=== PATIENT | female | born 1985 | race Caucasian/White ===

== ENCOUNTER 2019-06-08 07:54 | Emergency (ER) | payer OTHER ==
[~2019-06-08] VITALS: Ht 162.6 cm; Wt 89.4 kg
[2019-06-08] MEDS ORDERED: SYNTHROID88 MCG (08:00)
== END 2019-06-08 11:22 | disposition home or self-care (01) ==
LOC: ER 07:54
DX: G43.909 Migraine, unspecified, not intractable, without status migrainosus (principal)

== ENCOUNTER 2022-03-08 08:06 | Day surgery (SDC) | payer OTHER ==
[~2022-03-08] VITALS: Ht 162.6 cm; Wt 103.4 kg
[~2022-03-08 08:06] MED LIST: SYNTHROID88 MCG
== END 2022-03-08 20:10 | disposition home or self-care (01) ==
LOC: CIR.AMB 08:06
PROVIDERS: ATTEND Obstetrics & Gynecology
DX: N84.0 Polyp of corpus uteri (principal)

== ENCOUNTER 2024-08-16 00:20 | Emergency (ER) | payer OTHER ==
[~2024-08-16] VITALS: Ht 162.6 cm; Wt 92.1 kg
[2024-08-16] MEDS ORDERED: SUMATRIPTAN SUCCINATE 6 MG/0.5 ML VIAL SUBCUTANEO STA (08:22)
[2024-08-16] MEDS ORDERED: SUMATRIPTAN SUCCINATE 6 MG/0.5 ML VIAL SUBCUTANEO ONE (08:26)
== END 2024-08-16 09:29 | disposition home or self-care (01) ==
LOC: ER 00:23
DX: G43.909 Migraine, unspecified, not intractable, without status migrainosus (principal)

== ENCOUNTER 2024-09-12 17:42 | Emergency (ER) | payer OTHER ==
[~2024-09-12] VITALS: Ht 162.6 cm; Wt 93.4 kg
[2024-09-12] MEDS ORDERED: FAMOTIDINE/PF 20 MG/2 ML VIAL IV PUSH STA (19:39)
[2024-09-12] MEDS ORDERED: ONDANSETRON HCL 2 MG/ML VIAL IV STA (19:39)
[2024-09-12] MEDS ORDERED: ORPHENADRINE CITRATE 30 MG/ML AMPUL IM STA (19:40)
[2024-09-12] MEDS ORDERED: KETOROLAC TROMETHAMINE 15 MG VIAL IV STA (19:40)
[2024-09-12] MEDS ORDERED: KETOROLAC TROMETHAMINE 30 MG VIAL ONE (20:26)
[2024-09-12] MEDS ORDERED: FAMOTIDINE/PF 20 MG/2 ML VIAL ONE (20:27)
[2024-09-12] MEDS ORDERED: ONDANSETRON HCL 2 MG/ML VIAL ONE (20:27)
[2024-09-12] MEDS ORDERED: ORPHENADRINE CITRATE 30 MG/ML AMPUL ONE (20:27)
== END 2024-09-12 22:25 | disposition home or self-care (01) ==
LOC: ER 17:45
DX: G43.909 Migraine, unspecified, not intractable, without status migrainosus (principal)
CPT/HCPCS: 96365; 96372; 99282; J1885; J2360; J2405; J3490